=== PATIENT | male | born 1955 | race African-American/Black ===

== ENCOUNTER 2018-09-14 23:40 | Inpatient (IN) | payer OTHER ==
[~2018-09-14] VITALS: Ht 180.3 cm; Wt 107.5 kg
--- NOTE | ~2018-09-14 | EEG ---
[facility] [place] [address] ELECTROENCEPHALOGRAM Name: CHERRY OSHEA Room #: 241-P ADM IN M.R.#: [id number] ������������������ Admission: 09/15/18 ������������������ Attend Phys: Kevyn Rivera MD Discharge: ������������������ Date of : 55 Report #: [id number] ����������������������������������������������������������������� [id number] THIS REPORT FOR: //name// CC: Kevyn Rivera [facility] physician/PCP DATE OF SERVICE: 09/22/2018 This patient continues to have altered mental status and has a history of seizure. EEG is being done to further evaluate that. Background activity in this patient's EEG is about 10-11 Hz and 30 microvolt. The patient became drowsy and that is associated with bilateral slowing and vertex sharp waves. Photic stimulation was unremarkable. Throughout the record, no active epileptiform activity was noticed. IMPRESSION: This patient's EEG is unremarkable. It does not show any significant abnormality in spite of the patient's cognitive deficits. ���������������������������������������� ���������������������������������������� By: ��������������������������������������������� 1757 [id number] Glenn Betts MD /nt
[2018-09-14 23:43] VITALS: BP 183/113
[2018-09-15] VITALS (10 sets, daily range): BP systolic 170–198; BP diastolic 90–121
[2018-09-15] LABS: ABSOLUTE NEUTROPHILS 3.1 thou/uL (1.4-8.2); BASOPHILS 1.3 % (0.0-2.0); EOSINOPHILS 2.5 % (0.0-3.0); HEMATOCRIT 50.1 % (42.0-52.0); HEMOGLOBIN 16.8 gm/dL (14.0-18.0); LYMPHOCYTES 46.6 % (24.0-44.0); MCH 29.6 pg (26.0-34.0); MCHC 33.6 g/dL (28.0-37.0); MCV 88.1 fL (80.0-100.0); MONOCYTES 10.3 % (1.0-8.0); PLATELET COUNT 234 thou/uL (150-400); POLYS 39.3 % (36.0-66.0); RBC 5.68 mil/uL (4.50-6.00); RDW 13.7 % (10.5-14.5); WBC 8.7 thou/uL (4.0-11.0)
[2018-09-15 00:10] LABS: ANION GAP 20 mmol/L (7-16); BUN 14 mg/dL (7-18); CALCIUM 9.1 mg/dL (8.5-10.1); CHLORIDE 92 mmol/L (98-107); CO2 17 mmol/L (21-32); CREATININE 1.4 mg/dL (0.7-1.3); GLUCOSE 199 mg/dL (74-106); SODIUM 129 mmol/L (136-145)
[2018-09-15 00:16] LABS: POTASSIUM 3.6 mmol/L (3.5-5.1)
[2018-09-15 00:19] LABS: ALBUMIN 3.7 g/dL (3.4-5.0); MAGNESIUM 1.2 mg/dL (1.8-2.4); SALICYLATE < 2.8 mg/dL (2.8-20.0); SGOT 73 U/L (15-37); SGPT 56 U/L (30-65); TOTAL PROTEIN 8.8 g/dL (6.4-8.2); TROPONIN-I <0.06 ng/mL (<0.06)
--- NOTE | 2018-09-15 03:02 | NUR ---
PT ARRIVED VIA ED STRETCHER AROUND 0205 IN STABLE CONDITION. PLACED ON TELEMETRY AND ORIENTED TO ROOM. SPOUSE AND FAMILY FRIEND AT BEDSIDE BUT GOING HOME FOR A BIT. PT ADMIT TO FLOOR AND ORDERS CARRIED OUT.
--- NOTE | 2018-09-15 05:47 | NUR ---
PT RESTING IN BED, APPEARS TO BE SLEEPING. PT SR ON MONITOR. CONTINUES WITH IVF. PT AM LABS TO BE DRAWN. NO SEIZURES SINCE ADMIT. REMAINS ON CIWA ASSESSMENT.
[2018-09-15 06:24] LABS: PHOSPHORUS 3.5 mg/dL (2.5-4.9)
[2018-09-15 06:25] LABS: ANION GAP 9 mmol/L (7-16); BUN 12 mg/dL (7-18); CALCIUM 8.6 mg/dL (8.5-10.1); CHLORIDE 100 mmol/L (98-107); CHOLESTEROL 231 mg/dL (<200); CO2 27 mmol/L (21-32); GLUCOSE 116 mg/dL (74-106); HDL CHOLESTEROL 73 mg/dL (>40); LDL CHOLESTEROL 149 mg/dL (<100); POTASSIUM 3.2 mmol/L (3.5-5.1); SERUM ASSESSMENT Clear; SODIUM 136 mmol/L (136-145); TC:HDL 3.2 Ratio (Not establshd); TRIGLYCERIDE 45 mg/dL (<150); VLDL 9 mg/dL (<40)
--- NOTE | 2018-09-15 08:07 | EKG ---
[address] [place] [address] ELECTROCARDIOGRAM REPORT Name: CHERRY OSHEA Room #: 361-P ADM IN M.R.#: [id number] ������������������ Admission: 09/15/18 ������������������ Attend Phys: Kevyn Rivera MD Discharge: ������������������ Date of : 55 Report #: [id number] ����������������������������������������������������������������� [id number] THIS REPORT FOR: //name// [facility] ED Test Date: 2018-09-15 Test Time: 00:57:13 Pat Name: CHERRY OSHEA Department: Room: [facility] Gender: M Dynamometer Tester Engine: MARU : 1955 Requested By: Kevin Simental Order Number: [id number] MD: Irvin Kat Measurements Intervals [place] Rate: 98 P: 45 SD: 183 QRS: -44 QRSD: 118 T: 116 QT: 370 QTc: 473 Interpretive Statements Sinus rhythm Left atrial abnormality LVH with IVCD, LAD and secondary repol abnrm No previous ECG available for comparison Electronically Signed On 09-15-2018 8:07:06 CDT by Irvin Kat [email or web address] ��������������������������������������������� <ELECTRONICALLY SIGNED> ���������������������������������������� By: Irvin Kat MD, [facility] ��������������������������������������������� 09/15/18 0807 Irvin Kat MD, [facility] /EPI
[2018-09-15 08:58] LABS: FOLIC ACID 17.9 ng/mL (8.6-58.9)
[2018-09-15 09:51] LABS: URINE BILIRUBIN NEGATIVE (Negative); URINE BLOOD NEGATIVE (Negative); URINE CLARITY CLEAR; URINE COLOR YELLOW; URINE GLUCOSE-RANDOM* NEGATIVE (Negative); URINE KETONES NEGATIVE (Negative); URINE LEUKOCYTES-REFLEX NEGATIVE (Negative); URINE NITRITE-REFLEX NEGATIVE (Negative); URINE PROTEIN (DIPSTICK) NEGATIVE (Negative); URINE UROBILINOGEN 0.2 E.U./dl (0.2-1.0)
[2018-09-15 10:00] LABS: AMP/METHAMP Negative (Negative); BARBITURATES Negative (Negative); BENZODIAZEPINES Negative (Negative); COCAINE Negative (Negative); METHADONE Negative (Negative); OPIATES POSITIVE (Negative); PCP Negative (Negative)
--- NOTE | 2018-09-15 17:13 | NUR ---
ASSUMED PATIENT CARE AT 0700. A/O X3. CIW INCREACED TO 7-9 AT THIS TIME. RESTLESS, ELEVATED BP. PATIENT DENIAES PAIN. ON SEIZURE PRECAUTION. BED ALARM ON. WILL KEEP MONITOR.
--- NOTE | 2018-09-15 22:45 | NUR ---
Pt. very restless, impulsive and trying to get out of bed at beginning of shift. Keeps taking off heart monitor and attempted to pull out IV. Haldol given IM and sitter provided.BP elevated and he is tachypneic. RA sat >90% Lorazepam given with not much help. Bilateral soft wrist restraints applied per order. notified and updated. Pt. continued to have high CIWA score. ONCOLOGY PHYSICIAN ASSISTANT notified who came in to eval pt. Pt. transferred to ICU. notified.
[2018-09-16] VITALS (28 sets, daily range): BP systolic 118–215; BP diastolic 78–159
[2018-09-16 02:10] LABS: GLYCOHEMOGLOBIN (HGB A1C) 6.1 % (4.8-5.6)
[2018-09-16 04:35] LABS: ALBUMIN 3.5 g/dL (3.4-5.0); CALCIUM 8.8 mg/dL (8.5-10.1); CREATININE 0.8 mg/dL (0.7-1.3); TOTAL BILIRUBIN 1.1 mg/dL (<0.1-1.0); TOTAL PROTEIN 7.7 g/dL (6.4-8.2)
[2018-09-16 04:47] LABS: HEMATOCRIT 45.6 % (42.0-52.0); HEMOGLOBIN 15.3 gm/dL (14.0-18.0); MCH 29.5 pg (26.0-34.0); MCHC 33.6 g/dL (28.0-37.0); MCV 87.6 fL (80.0-100.0); RBC 5.2 mil/uL (4.50-6.00); RDW 13.9 % (10.5-14.5); WBC 5.3 thou/uL (4.0-11.0)
--- NOTE | 2018-09-16 07:29 | NUR ---
PATIENT IS PROGRESSING SLOWLY IN HER CARE PLAN. VITAL SIGNS STABLE WITH NURSE NOT PERCEIVING ANY PAIN OR NAUSEA ON BEHALF OF PATIENT. BREATHING STABLE EVIDENCED BY SPOT OXYGENATION CHECKS. PATIENT IS ORIENTED TO SELF AND ACTIVELY IN WITHDRAWAL SHOWING MARKED AGITATION AND IS VERY IMPULSIVE. CIWA PER PROTOCOL WITH MEDICATIONS GIVEN PER ORDER. PRECEDEX STARTED THIS MORNING. CATHETER INITIATED PER DOCTOR ORDER. CONTINUE PLAN OF CARE.
--- NOTE | 2018-09-16 11:49 | NUR ---
NOTIFIED TO ATTEMPT ADDITIONAL ACCESS FOR THIS PATIENT NEEDING PRECEDEX AND OTHER IV MEDS WHILE ON SEDATION. BOLTING MACHINE OPERATOR NOTIFIED FAMILY DPOA FOR VERBAL CONSENT FOR MIDLINE PLACEMENT. THE RIGHT UPPER ARM BASILIC WAS WIDLEY PATENT. A #4F POWER MIDLINE WAS PLACED PER HOSPITAL POLICY. LINE TRIMMED TO 15CM AND ADVANCED WITHOUT DIFFICULTY. LINE SECURED AND RELEASED FOR USE
--- NOTE | 2018-09-16 15:52 | NUR ---
Case opened to follow for dc planning. Pt is currently in the ICU on precedex for seizures/ ethol withdrawal protocal. Pt's spouse was here this am but had to go back to work this afternoon. Giving Officer spoke with her via phone. She reports that the pt has a long history of ethol abuse. He has never been to rehab and denies he is an alcoholic. 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 He did not sign up for his senior living insurance and does not have coverage through her job. She is hoping he will qualify for [place] and is willing to help with the application. [employer] referral in progress. Pysch eval pending. Cm will follow along and offer ethol resources if he is willing. Encouragement given to spouse to get support/counseling and [place] for herself as she expresses being overwhelmed and tried of him non wanting to get help. Support provided. 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 DC needs are uncertain at this time. Will follow.
--- NOTE | 2018-09-16 19:15 | NUR ---
SHIFT SUMMARY: PRECEDEX RESTARTED 0.4 MCG/KG/MIN, THEN INCREASED TO 1.2 MCG/KG/HR WHEN PT YELLING OUT, AGITATED, INCONTINENT OF STOOL. PT LETHARGIC MOST OF SHIFT, THEN BEGAN WAKING UP @ 1730. OPENING EYES SPONTANEOUSLY, FOLLOWING SIMPLE COMMANDS WITH ALL EXTREMITIES, STATES HIS NICKNAME "EYAL" WHEN ASKED HIS FULL NAME. SR. PT HAS SIGNIFICANT SLEEP APNEA WITH EPISODES ABOUT 4-6 SECONDS EACH INTERVAL OCCURING SEVERAL TIMES PER MINUTE. HE DESATED INTO UPPER 80'S INITIALLY, THEN QUICKLY RETURNED TO SA02 99-100%. IN MID TO LATE AFTERNOON, PLACED ON 2L/NC SINCE HE DESATED INTO 80'S HOWEVER HE ONLY RETURNED TO SA02 90-91%. LOW SAO2 RESOLVED WITH 02. WHEN PT WAS MORE AWAKE, YELLING, PULLING AT RESTRAINTS AND INCONTINENT OF STOOL, HE WAS THEN COOPERATIVE ENOUGH TO TAKE DEEP BREATHS TO REDUCED HIS RESP RATE. AND HER SISTER CALLED TO INQUIRE REGARDING PT STATUS, UPDATED.
[2018-09-17] VITALS (26 sets, daily range): BP systolic 135–196; BP diastolic 87–109
[2018-09-17 03:45] LABS: HEMATOCRIT 45.1 % (42.0-52.0); HEMOGLOBIN 15.2 gm/dL (14.0-18.0); MCH 29.5 pg (26.0-34.0); MCHC 33.8 g/dL (28.0-37.0); MCV 87.3 fL (80.0-100.0); RBC 5.17 mil/uL (4.50-6.00); RDW 14.1 % (10.5-14.5); WBC 4.7 thou/uL (4.0-11.0)
[2018-09-17 03:56] LABS: CALCIUM 8.6 mg/dL (8.5-10.1); CREATININE 0.8 mg/dL (0.7-1.3); MAGNESIUM 1.6 mg/dL (1.8-2.4); PHOSPHORUS 3.6 mg/dL (2.5-4.9); POTASSIUM 3.9 mmol/L (3.5-5.1)
--- NOTE | 2018-09-17 07:31 | NUR ---
assumed care at 1900. pt sedated. follows simple commands. unable to respond verbally. no openning eyes. precedex cut dowm to 0.6 mcg/kg/hr. hydralazine x1 for HTN. retraints renewed. At 0445, pt more awake asking where he was and how long he has been here. cooperative, following commands. AO X1. CIWA scores zero all night. no signs of agitation. took some of patients belongings home (phone, and some clothes). patient denies pain. no fever. on electrolyte protocol, Magnesium replaced for Mg 1.6 this morning. Will continue to follow POC.
--- NOTE | 2018-09-17 17:40 | NUR ---
ASSESSMENTS CHARTED - LENKA DIET AND FLUIDS WITH NO CO'S OF NAUSEA. - NO CO'S OF PAIN - CWIA ASSESSMENT @ A 4 THROUGHOUT THE DAY. PT WITH PRESIDEX TITRATED OFF THIS AM - LORAZEM GIBEN X 2 DOSES - PT STATING THAT HE IS NOT FEELING ANXIOUS / NERVOUS AT THE PRESENT TIME. LORAZEPAM GIVEN AT 0846 AND 1230. PRSIDEX TITRATED OFF AT 0.2 PER HOUR UNITL OFF AT 1200. PT REMAINS CONFUSED AT TO DAY/ MONTH - PT UP TO THE [facility] COMMODE X 3 TODAY 1 LARGE LIQUID STOOL - OTHE 2 TIMES MORE GAS THAN STOOL. REICH WITH CLEAR JADON/YELLOW UNINE - IV FLUIDS CONTINUE ORDERED. RESTRAINS REMOVED THSI AM AT 0830 - PT HAS NOT REQUIRED RESTRINING THIS SHIFT. BP HAS BEEN HIGH THROUGHOUT THE SHSIFT. GIVEN BP MEDS THIS AM AND BP DOWN TO THE 140'S AND HAS THEN GONE UP AGAIN - PT GIVEN HYDRALAZINE WITH MN EFFECT - DR MAY NOTIFIED AND PT GIVEN LABETALOL WITH MIN EFFECT AON BP - BOTH MEDS ABLE TO BE REPEATED PRN FOR SYS > THAN 160. MAG REPLACED THIS AM REPEAT MAG @ 2.0. PT WEANED OFF 02 - RA SAT 98%. PT UP IN THE CHAIR THIS AFTERNOON - HAS LENKA WELL. AT THE BEDSIDE AT TIMES THROUGHOUT THE DAY. NO CO'S AT THE PRESENT TIME.
[2018-09-18] VITALS (27 sets, daily range): BP systolic 126–197; BP diastolic 70–126
[2018-09-18 06:07] LABS: CALCIUM 8.6 mg/dL (8.5-10.1); CREATININE 0.9 mg/dL (0.7-1.3); POTASSIUM 3.5 mmol/L (3.5-5.1); TOTAL BILIRUBIN 0.8 mg/dL (<0.1-1.0); TOTAL PROTEIN 7.1 g/dL (6.4-8.2)
--- NOTE | 2018-09-18 06:37 | NUR ---
ASSUMED CARE FOR PT THIS EVENING. PT WAS ON PREVIOUS UNIT AND RECEIVED CARE. CIWA AT 1999 WAS 4. DURING THIS ASSESSMENT PT WAS STILL SHOWING SIGNS OF CONFUSION. EVENING PROGRESSED PT BECAME INCREASING CONFUSED, ANXIETY INCREASED, AND STARTED HAVING HALLUCINATIONS. BP INCREASED, TREATED IT ON DIFFERENT TIMES WITH IV LABETOLOL AND HYDRALIZINE. PT HAD BEEN PRECEDEX EARLIER BUT REMOVED. RESTARTED DRIP AND HAD SUCCESS WITH LOWERING BP TO ACCEPTABLE LEVELS. AT 0600 PT WAS RESTLESS AGAIN AND INCREASED THE DRIP TO 0.8mcg TO LESSEN ANXIETY LEVELS AND DECREASE BP. WILL CONTINUE TO MONITOR.
--- NOTE | 2018-09-18 17:24 | HC ---
[facility] [place] [address] CONSULTATION Name: CHERRY OSHEA Room #: 241-P [facility] IN M.R.#: [id number] Admission: 09/15/18 ������������������ Attend Phys: Kevyn Rivera MD Discharge: ������������������ Date of : 55 Report #: [id number] THIS REPORT FOR: //name// CC: Kevyn Rivera [facility] physician/PCP DATE OF SERVICE: 09/16/2018 REFERRING PHYSICIAN: Dr. Rivera. REASON FOR REFERRAL: Possible sleep related breathing disorder. HISTORY OF PRESENT ILLNESS: The patient is a 63-year-old -Green[place] male who was brought to the Emergency Room with acute mental status change. He has a history of alcohol abuse. Since admission, there are concerns for possible sleep apnea. A pulmonary consultation was requested. Currently, he is somewhat somnolent, snoring and with partial upper airway obstruction. He is currently being treated for alcohol withdrawal, being given benzodiazepine. I am not able to obtain much history. PAST MEDICAL HISTORY: Otherwise, unremarkable for alcohol abuse, hypertension. PAST SURGICAL HISTORY: Negative. ALLERGIES: None to medications. HOME MEDICATIONS: List incomplete. FAMILY HISTORY: Unknown. SOCIAL HISTORY: Alcohol abuse in the chart mentioned above. He does smoke cigarettes. REVIEW OF SYSTEMS: Deferred as the patient is not able to provide much history at this time given sedation. PHYSICAL EXAMINATION: GENERAL: He appears somnolent, in no distress. VITAL SIGNS: Temperature is 96 degrees Fahrenheit, pulse is 70, respiratory rate is 30, blood pressure 140/87 mmHg, saturation 95%. HEENT: Normocephalic, atraumatic. NECK: Supple, without lymphadenopathy or thyromegaly. CHEST: Breath sounds are fair due to poor effort. No obvious wheezes or rales. CARDIOVASCULAR: Normal S1, S2. There are no murmurs or gallop. There is no JVD, no carotid bruit. Pulses are 2+/4+ bilaterally. [facility] [address] [place] [address] CONSULTATION Name: CHERRY OSHEA Room #: [address] [place] [address] [facility]#: [id number] Admission: 09/15/18 ������������������ Attend Phys: Kevyn Rivera MD Discharge: ������������������ Date of : 55 Report #: [id number] ABDOMEN: Soft, nontender, no organomegaly or masses felt. GENITOURINARY: Deferred. RECTAL: Deferred. EXTREMITIES: There is no edema, cyanosis or clubbing. LABORATORY DATA: Portable chest x-ray shows small lung volumes, otherwise clear. Alcohol level was less than 10. BNP is 1100. Ammonia level is 33. CT head was grossly unremarkable for any acute changes. Marked prominence of the ventricle sulci consistent with chronic atrophy. Urine drug screen was positive for opiates only. EKG was unremarkable. Electrolytes are normal, creatinine 0.8. CBC was grossly unremarkable. Hemoglobin was 16.8. Albumin 2.5. IMPRESSION: 1. Acute mental status change, encephalopathy in this 63-year-old -Green[place]ic male with history of alcohol use. His alcohol level on this admission is less than 10. Etiology, likely related to alcohol withdrawal. He is unclear when he last drank. 2. Possible sleep-related breathing disorder. He does have trouble with partial upper airway obstruction. When clinically stable, the patient would benefit from outpatient sleep evaluation. 3. Hypotension. RECOMMENDATION: Agree with current care with alcohol withdrawal prophylaxis, neurologic evaluation regarding encephalopathy. I will be happy to see the patient in the outpatient for possible question with our evaluation of sleep-related breathing disorder. Thank you for this consultation. ��������������������������������������������� <ELECTRONICALLY SIGNED> ���������������������������������������� By: Shiv Mason MD ��������������������������������������������� 09/18/18 1724 1457 [id number] Shiv Mason MD /nt
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
[2018-09-19] VITALS (29 sets, daily range): BP systolic 131–178; BP diastolic 75–114
--- NOTE | 2018-09-19 07:20 | NUR ---
ASSUMED CARE @ 1900 09/18/18, PT ASSESSMENTS AND VSS COMPLETE PER ICU PROTOCOL, PT ALERT X ORIENTED X 1-2, PT ON PRECEDEX GTT, ATIVAN GIVEN PRN DURING SHIFT, CIWA PROTOCOL IN PLACE. PT GOT IMPULSIVE DURING THE SHIFT, WAS THERE TO CALM DOWN, BUT WHEN STEPS OUT OF THE ROOM, PT TRIES TO GET OUT OF BED. PT IN SR, PT HYPERTENSIVE THROUGH OUT THE NIGHT, HTN SCHEDULED AND PRN GIVEN, JAYSON CALLED DURING THE SHIFT TO SEE IF MORE COULD BE DONE, NO NEW ORDERS RECIEVED. PT ON HEART HEALTHY DIET, EYAL BM DURING SHIFT. REICH IN PLACE, GOP NOTED.
[2018-09-19 15:07] LABS: HEMATOCRIT 43.5 % (42.0-52.0); HEMOGLOBIN 14.5 gm/dL (14.0-18.0); MCH 29.3 pg (26.0-34.0); MCHC 33.4 g/dL (28.0-37.0); RBC 4.94 mil/uL (4.50-6.00); RDW 13.7 % (10.5-14.5)
[2018-09-19 15:14] LABS: CALCIUM 9.1 mg/dL (8.5-10.1); CREATININE 0.9 mg/dL (0.7-1.3); MAGNESIUM 1.4 mg/dL (1.8-2.4); POTASSIUM 3.8 mmol/L (3.5-5.1)
--- NOTE | 2018-09-19 15:29 | NUR ---
PT IS ALERT AND ORIENTED X2. WITH IMPULSIVE AND CONFUSION NOTED. SPOUSE AT BEDSIDE WITH PT. REMIANS ON PRECEDEX DRIP ETOH ABUSE. LUNGS ARE CLEAR TO DIMINISHED. 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 ON A HEART HEALTHY DIET. REICH TO DD WITH JADON URINE PRESENT. NO SKIN ISSUES. CIWA SCALE IS 10-12. WITH RESTLESS NOTED. AND REORIENT PT TO SUROUNDING AND SAFEY AT THIS TIME. SIDE RAILS PADED FOR SAFEY. SCDS ON BILATERAL. WILL CONTINUE TO MONITOR AND ASSESS PER JOSE LUIS.
[2018-09-20] VITALS (23 sets, daily range): BP systolic 150–188; BP diastolic 94–115
[2018-09-20 06:06] LABS: CREATININE 0.8 mg/dL (0.7-1.3); POTASSIUM 3.3 mmol/L (3.5-5.1)
--- NOTE | 2018-09-20 06:41 | NUR ---
ASSUMED CARE @ 1900 09/19/18, PT ASSESSMENTS AND VSS COMPLETE PER ICU PROTOCOL, PT ALERT AND ORIENTED X 2, PT VERY CONFUSED AND IMPULSIVE DURING THE SHIFT, PT CONSTANTLY TRYING TO GET OUT OF BED, A NEW ORDER FOR RESTRAINTS WAS ATTAINED TO PROTECT PATIENT FROM INJURY, PRECEDEX GTT IN PLACE, ATIVAN PRN GIVEN DURING THE SHIFT. PT IN SR, LABETOLOL AND HYDRALAZINE PRN. PT ON RA, 2L PRN FOR SLEEP APNEA, SATS IN THE HIGH 90'S TO 100. DIET IN PLACE, REICH IN PLACE, FALL PRECAUTIONS IN PLACE, PLAN OF CARE- WILL CONT TO MONITOR.
--- NOTE | 2018-09-20 18:25 | NUR ---
ASSUMED CARE OF PT @ 0700. PT RESTLESS/AGITATED AT TIMES, ON PRECEDEX C BILAT SOFT WRIST RESTRAINTS. PT ATTEMPTED TO GET OUT OF BED SEVERAL TIMES. IN AND OUT TODAY, PT CALM WHILE SHE IS AT BEDSIDE. BP REMAIN ELEVATED, PRN HYDRALAZINE/LABATOLOL GIVEN. CIWA PROTOCOL FOLLOWED C ATIVAN GIVEN X3 THIS SHIFT.
[2018-09-21] VITALS (27 sets, daily range): BP systolic 147–196; BP diastolic 81–132
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
[2018-09-21 12:31] LABS: CALCIUM 9.7 mg/dL (8.5-10.1); CREATININE 0.8 mg/dL (0.7-1.3); MAGNESIUM 1.4 mg/dL (1.8-2.4); POTASSIUM 3.5 mmol/L (3.5-5.1)
--- NOTE | 2018-09-21 16:28 | NUR ---
3880 - DR. STARR UPDATED ON ELEVATED HR, BLOOD PRESSURE, RESPITORY RATE, TEMP - ORDERS RECEIVED FOR CHEST XRAY, URINALYSIS, AND ANTIBIOTICS - CONFIRMED STILL APPROPRIATE TO TRANSFER PT OUT OF ICU
[2018-09-21 16:47] LABS: URINE BILIRUBIN NEGATIVE (Negative); URINE BLOOD 3+ (Negative); URINE COLOR YELLOW; URINE GLUCOSE-RANDOM* NEGATIVE (Negative); URINE KETONES TRACE (Negative); URINE LEUKOCYTES-REFLEX 3+ (Negative); URINE NITRITE-REFLEX POSITIVE (Negative); URINE PROTEIN (DIPSTICK) 1+ (Negative); URINE SPECIFIC GRAVITY 1.025 (1.005-1.035); URINE UROBILINOGEN 0.2 E.U./dl (0.2-1.0)
[2018-09-21 16:48] LABS: URINE CLARITY CLOUDY
[2018-09-21 17:07] LABS: CASTS None Seen /LPF (None Seen); CRYSTALS None Seen /LPF (None Seen); SQUAMOUS None Seen /LPF (0-3); URINE WBC-REFLEX >25 Many /HPF (0-5); WBC CLUMPS Packed (None Seen)
--- NOTE | 2018-09-21 18:30 | NUR ---
DR. TRINIDAD UPDATE ON ELEVATED BP HR RR AND RESULTS OF XRAY/UA - TRANSFER ON HOLD - ORDERS RECEIVED
[2018-09-22] VITALS (39 sets, daily range): BP systolic 134–196; BP diastolic 70–156
[2018-09-22 06:16] LABS: HEMATOCRIT 44.9 % (42.0-52.0); HEMOGLOBIN 15.1 gm/dL (14.0-18.0); MCH 29.2 pg (26.0-34.0); MCHC 33.6 g/dL (28.0-37.0); MCV 86.9 fL (80.0-100.0); RBC 5.16 mil/uL (4.50-6.00); RDW 13.7 % (10.5-14.5); WBC 7.6 thou/uL (4.0-11.0)
[2018-09-22 06:32] LABS: CREATININE 1.1 mg/dL (0.7-1.3); MAGNESIUM 1.9 mg/dL (1.8-2.4); POTASSIUM 3.3 mmol/L (3.5-5.1)
--- NOTE | 2018-09-22 08:05 | NUR ---
SEE Picarro FOR ASSESMENT. PT RESTLESS AND HALLUCINATING MOST OF NOC. CIGWA 8-16. ATIVAN GIVEN. ? IF MADE HIM WORSE HALLUCINATIONS PERSIST. BP REMAINED JAGJIT, AND PT SYMPTOMATIC WITH HEADACHE. LABATOLOL GIVEN TO KEEP SBP<160. SPOKE WITH CASE MANAGEMENT SOCIAL WORKER RE VSS, TEMP 100.8 MAX. ORDERS RECIEVED. CONT TO MONITORS
--- NOTE | 2018-09-22 10:56 | NUR ---
Nutrition: Pt admit with AMS to ICU, in ETOH withdrawal. Seen for LOS. Is confused, impulsive and hallucinating. Seen for LOS. Unsure of accuracy of pt statements during interview. Admit wt 237#. Current 244#. PO reportedly fair this am. Unable to provide food preferences. Agrees to try ensure BID. On , thiamine. Sitter present. Continue to monitor/encourage intake. Consider low risk with interventions in place.
--- NOTE | 2018-09-22 17:58 | EEG ---
[facility] [place] [address] ELECTROENCEPHALOGRAM Name: CHERRY OSHEA Room #: 241-P ADM IN M.R.#: [id number] ������������������ Admission: 09/15/18 ������������������ Attend Phys: Kevyn Rivera MD Discharge: ������������������ Date of : 55 Report #: [id number] ����������������������������������������������������������������� [id number] THIS REPORT FOR: //name// CC: Kevyn Rivera [facility] physician/PCP DATE OF SERVICE: 09/15/2018 INTERPRETATION: This patient is being evaluated for altered mental status and seizure. EEG was done by placing the electrodes by standard 10-20 system of electrode placement. Background activity in this patient's EEG is about 11 Hz and 40 microvolts. The patient became drowsy that is associated with bilateral slowing and vertex sharp waves. Photic stimulation was unremarkable. Throughout the record, no active epileptiform activity was noticed. IMPRESSION: This patient's EEG is unremarkable. ���������������������������������������� <ELECTRONICALLY SIGNED> ���������������������������������������� By: Glenn Betts MD ��������������������������������������������� 09/22/18 1758 1739 1918 Glenn Betts MD /nt
--- NOTE | 2018-09-22 21:28 | NUR ---
Pt confused but mostly cooperative during morning and early afternoon. From approximately 1400 until end of shift pt had increasing confusion, hallucinations, and agitation. sat with patient during late afternoon until end of visiting hours at 1800. Pt was taken to radiology for CT of head by Carmelo Quinteros RN. EEG was done at bedside prior to CT scan. After left pt became more agitated with no reasoning or concept of reality. Pt wanting to leave hospital to check on his dog. Also voicing concern about his fishing poles and other personal items. Dr Webster by to see pt prior to change of shift. Dr Rivera was notified of increasing confusion/delerium approx. 1545. Transfer out of ICU was cancelled. Call placed to Dr Mcmahan approx 1945 to notify of increased agitation/confusion. Report given to oncoming nurse with mulitiple interruptions due to patient wanting to get out of bed and leave the hopital. Orders were received for CHARLEE Carbone. Sitter order was received from Dr Webster. Informed by ICU charge nurse that sitter woud not be availabe until 2300. Fall precautions in place with bed alarm activated, bed in low position, call light in reach. [facility] security were called and came to assist with pt's agitation and desire to leave the hosital. wastewater superintendent spent time talking and attempting to calm patient.
[2018-09-23] VITALS (45 sets, daily range): BP systolic 131–196; BP diastolic 69–117
[2018-09-23 03:25] LABS: URINE BILIRUBIN NEGATIVE (Negative); URINE BLOOD 2+ (Negative); URINE CLARITY CLEAR; URINE COLOR YELLOW; URINE GLUCOSE-RANDOM* NEGATIVE (Negative); URINE KETONES 1+ (Negative); URINE NITRITE-REFLEX NEGATIVE (Negative); URINE PROTEIN (DIPSTICK) NEGATIVE (Negative); URINE UROBILINOGEN 0.2 E.U./dl (0.2-1.0)
[2018-09-23 03:53] LABS: CALCIUM 9.2 mg/dL (8.5-10.1); MAGNESIUM 1.5 mg/dL (1.8-2.4); POTASSIUM 3.3 mmol/L (3.5-5.1)
--- NOTE | 2018-09-23 04:44 | NUR ---
RECEIVED PT'S CARE AT 1900; PT. CONFUSED; RESTLEES; IRRITABLE; DURING SHIFT CHANGE; MORNING NURSE CONTACTED PHYSICIAN; NEW ORDERS RECEIVED; PT. AGITATED; HALUCINATING; ST. "I NEED TO GO AND SEE THE DOG"; RE-ORIENTED ABOUT PLACE; ST. HE IS AT HOME AND NEEDS TO CHECK HIS DOG; WANTED TO GET OUT FROM BED; HOSTILE; AT 2000 RESTRAINS APPLIED PER ORDER; PT. REMAINED ANXIOUS; AROUND 2300 PT. RESTING WITH EYES CLOSED; THROUGH THE NIGHT SBP ABOVE 180'S; PRN MEDICATION GIVEN; AT 0230 PT. WOKE UP; TRIED TO GET OUT FROM BED; AGITATED; INCONTINENT; REICH INSERT PER ORDER; ST. STAFF NEEDS TO LIVE HIS HOUSE; PRN MEDICATION GIVEN; AT 0400 SBP 160; AT 0500 SBP 155; PT. RESTING WITH EYES CLOSED; MONITORING BP; ASSESSMENT CHARGED; POC MODIFIED; WILL KEEP MONITORING; WILL PASS ON REPORT.
[2018-09-23 04:49] LABS: URINE LEUKOCYTES-REFLEX 1+ (Negative)
[2018-09-23 04:59] LABS: BACTERIA-REFLEX 1-9 Few /HPF (None Seen); CASTS None Seen /LPF (None Seen); CRYSTALS None Seen /LPF (None Seen); MUCUS None Seen strn/LPF (None Seen); SQUAMOUS None Seen /LPF (0-3); TRANSITIONAL EPITHEL CELL 0-3 Few /LPF (None Seen); URINE RBC 3-10 Few /HPF (0-2); URINE WBC-REFLEX 6-15 Few /HPF (0-5)
[2018-09-23 11:39] LABS: POTASSIUM 3.5 mmol/L (3.5-5.1)
--- NOTE | 2018-09-23 17:40 | NUR ---
SHIFT SUMMARY: PATIENT BECAME MORE ORIENTED THE DAY WENT BY AND FOLLOW COMMANDS. VITALS STABLE AND DENIES ANY PAIN. TOLERATING DIET W/O NAUSEA. REICH WITH ADEQUATE OUTPUT. WILL CONTINUE TO MONITOR CLOSELY AND MAINTAIN SAFETY.
[2018-09-24] VITALS (12 sets, daily range): BP systolic 131–174; BP diastolic 81–103
--- NOTE | 2018-09-24 07:00 | NUR ---
PT REMAINS STABLE THIS AM. NO HALLUCINATION OR DELIRIUM INDICATES. HE SLEPT WELL TONIGHT. BP SLIGHTLY ELEVATED THIS AM. GAVE HYDRALAZINE IV ONE DOSE . HE IS CONTINUE MAKING PROGRESS TOWARD GOALS.
--- NOTE | 2018-09-24 14:35 | NUR ---
Pt's mental status is better today and he is able to participate in conversation about alcohol treatment and medical f/u. He worked with therapy and is steady on his feet w/o assistive device. Transfering out of ICU this afternoon to rm [phone]. updated. She is aware that he will likely be dc'd to home this weekend. Encouragement given to establish a pcp and mental health f/u at [facility]. She will make an appt. Medications and assistance programs discussed. Pt scripts need to be eligable for the [email or web address] $4 list if possible. [employer] info provided as well. Ethol tx and support resources discussed with both the pt and his spouse. Pt appears receptive and states he is quitting alcohol altogether. Encouragment given to connect with AA or work with [facility] programing to maintain is sobriety. has cleared out the townhome and is aware that the pt should not be driving until cleared by his pcp in followup appt. Resources documented in his dc instructions. Nursing updated.
--- NOTE | 2018-09-24 16:56 | NUR ---
ASSUMED CARE OF PT AT 0645. MORE ALERT AND APPROPRIATE THAN PREVIOUS DAYS. UP WITH STAND BY ASSIST. LENKA MEDS AND DIET. PT WANTS TO GO HOME, NOT INTERESTED IN ALCOHOL REHAB. MS TELE TX ORDERS. WORKED WITH THERAPY. TX TO 4W.
--- NOTE | 2018-09-24 17:37 | NUR ---
PT CAME TO FLOOR AT 1600, A&OX4, VSS, NO PAIN. PT AWARE TO CALL FOR ASSISTANCE WITH AMBULATING. PT AFFECT APPROPRIATE. WILL CONTINUE TO MONITOR.
--- NOTE | 2018-09-25 01:42 | NUR ---
PT ORIENTATED TO ROOM AND CALL LIGHT PT GIVEN DILAUDED AND OXYCODONE FOR PAIN PT USED CALL LIGHT EFFECTIVELY NO ISSUES OVERNIGHT.
--- NOTE | 2018-09-25 01:46 | NUR ---
PT ANXIOUS ABOUT DISCHARGE DURING THE NIGHT PT WAS SOMEWHAT CONFUSED DURING THE NIGHT BUT EASILY ORIENTATED.
[2018-09-25 08:01] VITALS: BP 154/89
--- NOTE | 2018-09-25 14:40 | NUR ---
PATIENT TRANSFERRED FROM 4W ROOM #455 TO ROOM #224. PATIENT ORIENTED AND SETTLED AND VS TAKEN.
--- NOTE | 2018-09-25 14:55 | NUR ---
PT DISCHARGED TO [facility] FROM 4W. PT LEFT A&OX4, VSS, NO PAIN. PT WAS IMPULSIVE THIS AM; REORIENTED TO FALL PRECAUTION RULE AND STAYED IN BED DURING THE EVENING. PT AFFECT CALM AND COOPERATIVE. HE DENIED HALLUCINATIONS, TACTILE DISTURBANCES, N/V, HEADACHE, AND LIGHT HEADEDNESS. PT BELONGINGS WITH HIM.
[2018-09-25 17:30] VITALS: BP 115/77
[2018-09-25 19:26] VITALS: BP 159/101
[2018-09-25 20:23] VITALS: BP 166/99
[2018-09-25 21:09] VITALS: BP 156/92
--- NOTE | 2018-09-26 04:01 | NUR ---
ASSUMED CARE OF PATIENT AT 1900. BP HIGH. ASSESSMENT COMPLETED AT 1940 AND IS DOCUMENTED. A&O X4. DENIES PAIN. PT HAS SLEPT SOUNDLY THROUGHOUT THE NIGHT WITH NO ACUTE DISTRESS NOTED OR REPORTED. UP TO TOILET INDEPENDENTLY. PT CONTINUES TO SLEEP SOUNDLY IN BED WITH CALL LIGHT WITHIN REACH. BED LOCKED AND IN LOWEST POSITION. WCTM.
[2018-09-26 06:34] LABS: HEMATOCRIT 42.6 % (42.0-52.0); HEMOGLOBIN 14.1 gm/dL (14.0-18.0); MCH 28.8 pg (26.0-34.0); MCV 87.3 fL (80.0-100.0); RBC 4.89 mil/uL (4.50-6.00); RDW 13.2 % (10.5-14.5); WBC 5.1 thou/uL (4.0-11.0)
[2018-09-26 06:52] LABS: ALBUMIN 3.4 g/dL (3.4-5.0); CALCIUM 9.1 mg/dL (8.5-10.1); POTASSIUM 3.4 mmol/L (3.5-5.1); TOTAL BILIRUBIN 0.4 mg/dL (<0.1-1.0); TOTAL PROTEIN 8.3 g/dL (6.4-8.2)
[2018-09-26 08:11] VITALS: BP 153/98
[2018-09-26 09:03] VITALS: BP 153/98
--- NOTE | 2018-09-26 10:17 | NUR ---
ASSUMED CARE OF PATIENT THIS MORNING. PATIENT IS A&OX4. HE GETS UP WITH SBA. PATIENT HAS A RIGHT MIDLINE UPPER ARM. HE DID NOT COMPLAIN OF ANY PAIN THIS MORNING. HE TOLERATED ALL MORNING MEDICATIONS. PATIENT DISCHARGED HOME WITH SELF CARE AND FOLLOW UP WITH PRIMARY CARE PHYSICIAN WITHIN 1 WEEK. MIDLINE WAS REMOVED BY RN. PATIENT'S PICKED PATIENT UP FOR DEPARTURE HOME.
--- NOTE | 2018-09-26 10:32 | NUR ---
I AGREE WITH NURSING ASSESSMENT DONE BY MELVA/STONE.
== END 2018-09-26 10:33 | disposition home or self-care (01) | DRG 689 ==
LOC: ER 23:40 → EROBS 09-15 01:36 → ICU 09-15 01:36 → 3W 09-15 01:58 → ICU 09-15 22:32 → 4W 09-24 15:21 → SICU 09-25 14:39
PROVIDERS: Emergency Medicine; Hospitalist; Internal Medicine; Nurse Practitioner Acute Care; Nurse Practitioner Family; ADMIT Hospitalist
PROC: 05HY33Z Insertion of Infusion Device into Upper Vein, Percutaneous Approach (ICD-10-PCS; principal; 2018-09-16)
DX: N39.0 Urinary tract infection, site not specified (principal); G93.41 Metabolic encephalopathy; E87.1 Hypo-osmolality and hyponatremia; I16.1 Hypertensive emergency; F03.91 Unspecified dementia, unspecified severity, with behavioral disturbance; F10.231 Alcohol dependence with withdrawal delirium; N18.9 Chronic kidney disease, unspecified; E83.42 Hypomagnesemia; R74.0 Nonspecific elevation of levels of transaminase and lactic acid dehydrogenase [LDH]; I12.9 Hypertensive chronic kidney disease with stage 1 through stage 4 chronic kidney disease, or unspecified chronic kidney disease; I95.9 Hypotension, unspecified; Z87.891 Personal history of nicotine dependence; Z79.899 Other long term (current) drug therapy; Z82.49 Family history of ischemic heart disease and other diseases of the circulatory system; Z80.8 Family history of malignant neoplasm of other organs or systems; Z71.41 Alcohol abuse counseling and surveillance of alcoholic
CPT/HCPCS: 10045; 10078; 10203; 15002; 27000